=== PATIENT | male | born 1985 | race Caucasian/White ===

== ENCOUNTER 2017-07-14 03:49 | Emergency (ER) | payer MEDICAID ==
[~2017-07-14] VITALS: Ht 170.2 cm; Wt 111.0 kg
[2017-07-14] MEDS ORDERED: PREDNISONE 20MG TABLET PO ONE (04:45)
[2017-07-14] MEDS ORDERED: POLYVINYL ALCOHOL OPHTH DROPS 15ML BOTHEYE PRN (04:45)
[2017-07-14] MEDS ORDERED: ACYCLOVIR 400 MG TABLET PO ONE (04:45)
[2017-07-14 05:34] VITALS: BP 162/99
== END 2017-07-14 05:43 | disposition home or self-care (01) ==
LOC: ER 03:55
DX: G51.0 Bell's palsy (principal); F17.210 Nicotine dependence, cigarettes, uncomplicated; F12.10 Cannabis abuse, uncomplicated; Z90.49 Acquired absence of other specified parts of digestive tract
CPT/HCPCS: 99284; J7512; Z7610